=== PATIENT | female | born 1990 | race Caucasian/White ===

== ENCOUNTER 2018-06-12 04:40 | Inpatient (IN) | payer OTHER ==
[~2018-06-12] VITALS: Ht 157.5 cm; Wt 81.6 kg
[~2018-06-12 04:40] MED LIST: ACE3 PO; ASCO500C9 PO; CALC500T6 PO; ERGO400T9 PO; IBUP800T37 PO; PREN-127 PO
[2018-06-12] MEDS ORDERED: LR(*) 1000 ML BAG 1,000 ML IV SCH (04:42)
[2018-06-12] MEDS ORDERED: OXYTOCIN 30 UNIT/D5LR 500 ML 500 ML IV PRN ×2 (04:42→08:27)
[2018-06-12] MEDS ORDERED: FAMOTIDINE(*) 20MG/50ML PREMIX 50 ML IVPB PRN (04:42)
[2018-06-12] MEDS ORDERED: METOCLOPRAMIDE 10 MG/2 ML SDV IVP PRN (04:45)
[2018-06-12] MEDS ORDERED: fentaNYL CITR 100 MCG/2 ML AMP IVP PRN (04:45)
[2018-06-12] MEDS ORDERED: cefOXitin/DEX(*) 2GM/50ML PREM 50 ML IVPB PRN (04:45)
[2018-06-12] MEDS ORDERED: LIDOCAINE/SOD BICARB 8.4% SYR SC PRN (04:45)
[2018-06-12] MEDS ORDERED: LIDOCAINE 1% LOCAL 300 MG/30ML INJ PRN (04:45)
[2018-06-12] MEDS ORDERED: ACET500T68 PO (05:13)
[2018-06-12 05:25] LABS: PLATELET COUNT, AUTOMATED 214 K/uL (150-450)
--- NOTE | 2018-06-12 05:36 | History & Physical ---
History of Present Illness Estimated Gestational Age: 39.1 Chief Complaint Contractions History of Present Illness 27yo at 39w1d presents with regular uterine contractions. She denies LOF or VB. +FM. No preeclampsia symptoms. PNC by [facility]. uncomplicated. GBS negative. She does have a history of precipitous delivery with G2. History Patient's Blood Type: A Positive Rubella Status: Immune Group B Strep Screen: Negative Obstetrical History: Hx 2 FT SVDs without anesthesia Past Medical History: See PNR Allergies: Coded Allergies: No Known Drug Allergies (Unverified , 07/24/17) Social History: No T/E/D. Med Rec Home Meds Reported Medications Acetaminophen (TYLENOL EXTRA STRENGTH) 500 Mg Tablet, 500 MG PO, TAB 06/12/18 Vits W-Ca,Fe,Fa(<1MG) ( VITAMINS) 1 Each Tablet, 1 EACH PO DAILY 06/03/13 Discontinued Scripts Ibuprofen (IBUPROFEN) 800 Mg Tablet, 800 MG PO Q8H, #20 TAB 0 Refills Prov:FRANCIS ZAVALETA MD 12/24/15 Review of Systems Constitutional: No Fever Neurological: No Syncope Eyes: No Vision Change Cardiovascular: No Chest Pain Respiratory: No Shortness of Breath, No Cough Gastrointestinal: No Nausea, No Vomiting, No Diarrhea Genitourinary: No Dysuria Psychiatric: No Depression, No Anxiety Exam General Exam Vital Signs VS reviewed General Apperance: Alert/Awake/No Acute Distress Neuro: No Gross deficits Eyes: Normal Extraocular Movement & Vison Respiratory: Clear to Auscultation Abdomen: Gravid - Non-Tender : Normal Musculoskeletal: No Weakness/Pain Extremities: No Cyanosis,Clubbing or Edema Integumentary: Skin Intact without Lesions or Rash Psychological: Alert & Oriented X3, Appropriate Mood & Affect Cervical Dialation: 3 Cervical Effacement (%): 50 Cervical Consistency: Moderate Cervical Position: Mid Station: -1 Presentation: Vertex Uterine Contractions(Q min): 5 Uterine Contraction Strength: Moderate UC Resting Tone: Soft Fetus FHT Category: I Medical Decision Making Pre-Admit Course Medical Record Review: Yes VTE Prophylasis: Adult Deep Vein Thrombosis/Pulmonary: No Pharmacological Contraindicati: Pt at Low Risk for VTE Mechanical Contraindications: Pt at Low Risk for VTE Assessment and Plan Problems: (1) Spontaneous onset of labor Assessment & Plan: 27yo at 39w1d presents with regular uterine contractions. She will be admitted for labor and monitored for cervical change. She has a history of precipitous delivery, so will monitor closely. GBS negative. (2) 39 weeks gestation of UBALDO RIVER MD Jun 12, 2018 05:36
[2018-06-12 07:16] VITALS: BP 124/72; Ht 157.5 cm; Wt 81.6 kg
[2018-06-12] MEDS ORDERED: ONDANSETRON 4 MG/2 ML VIAL IVP PRN (07:35)
--- NOTE | 2018-06-12 07:45 | Labor Progress Note ---
Labor Subjective Progress Notes Subjective Pt is transitioning to active labor. Feeling more pressure. Labor Objective Vital Signs Vital Signs Date Time Temp Pulse Resp B/P (MAP) Pulse Ox O2 Delivery O2 Flow Rate FiO2 06/12/18 07:16 97.9 80 124/72 (89) 96 Room Air Cervical Dialation: 6 Cervical Effacement (%): 100 Cervical Consistency: Soft Cervical Position: Mid Station: 0 Presentation: Vertex Uterine Contractions(Q min): 4 Uterine Contraction Strength: Strong UC Resting Tone: Soft Fetus FHT Category: I General Exam General Appearance: Alert/Awake/No Acute Distress Respiratory: No Respiratory Distress Abdomen: Gravid - Non-Tender : Normal Musculoskeletal: No Weakness/Pain Extremities: No Cyanosis,Clubbing or Edema Integumentary: Skin Intact without Lesions or Rash Psychological: Alert & Oriented X3, Appropriate Mood & Affect Other Result Diagram: 06/12/18 0508 Assessment and Plan Problems: (1) Spontaneous onset of labor Assessment & Plan: Pt is now 6cm. Anticipate . (2) 39 weeks gestation of UBALDO RIVER MD Jun 12, 2018 07:45
[2018-06-12] MEDS ORDERED: LR(*) 1000 ML BAG 1,000 ML IV PRN (08:13)
[2018-06-12] MEDS ORDERED: LANOLIN OINT 7 GM TUBE TP PRN (09:00)
[2018-06-12] MEDS ORDERED: BENZOCAINE 20% 60 ML BTL TP PRN (09:00)
[2018-06-12] MEDS ORDERED: APAP/HYDROCODONE 325/5 TAB PO PRN (09:00)
[2018-06-12] MEDS ORDERED: MAGNESIUM HYDROXIDE* 30ML UDCP PO PRN (09:00)
[2018-06-12] MEDS ORDERED: GLYCERIN/WITCH HAZEL LEAF 1 PK TP PRN (09:00)
[2018-06-12] MEDS ORDERED: ACETAMINOPHEN 325 MG TAB PO PRN (09:00)
[2018-06-12] MEDS ORDERED: HYDROCORTISONE 2.5% CR 30GM TB PR PRN (09:00)
--- NOTE | 2018-06-12 09:06 | OB Delivery Note ---
Delivery Note Vaginal Delivery Type: Spont. Vaginal Delivery Delivery Date: Jun 12, 2018 Delivery Time: 08:19 Estimated Gestational Age(wks): 39.1 Length of Labor Stage I (hrs): 1 Length of Labor Stage II (hrs): 0.5 Labor Stage III (minutes): 7 Infant Sex: Female Infant Weight (gms): 3164 (6#15oz) [place] Apgars: 1 Minute (8), 5 Minute (9) Estimated Blood Loss: 400 Delivery Complications: Precipitous Nuclear Pharmacist in Attendence: HUMBERTO Carias DO Jun 12, 2018 09:06
[2018-06-12] MEDS: DOCUSATE CALCIUM 240 MG CAP PO SCH ×2 (09:13→20:27)
[2018-06-12] MEDS: IBUPROFEN 800 MG TAB PO SCH ×2 (09:13→17:27)
[2018-06-12 09:17] VITALS: BP 127/61
[2018-06-12 10:18] VITALS: BP 135/58
--- NOTE | 2018-06-12 10:42 | DELIVERY NOTE ---
DELIVERY DATE: June 12, 2018 SURGEON: Adriano Villasenor DO ANESTHESIA: None. PREOPERATIVE DIAGNOSIS 1. 27-year-old 3, para 2 at 39 and 1/7 weeks gestation. 2. Labor. POSTOPERATIVE DIAGNOSIS 1. 27-year-old 3, para 2 at 39 and 1/7 weeks gestation. 2. Labor. 3. Delivered. PROCEDURE Spontaneous vaginal delivery. FINDINGS Liveborn female infant at 0819 of June 12, 2018 with Apgars of 8 and 9, weighing 3164 grams, 6 pounds 15 ounces, three-vessel cord, intact placenta over an intact perineum. ESTIMATED BLOOD LOSS 400 mL. PATHOLOGY None. COMPLICATIONS None known. CONDITION Stable x2. Mother and infant to remain in LDRP. COUNTS Correct x2 for all needles, laps, sponges and instruments. LABOR SUMMARY Patient is a 27-year-old 3, para 2 at 39 and 1/7 weeks gestation who presents to Labor and Delivery for chief complaint of painful contractions. She was initially found to be 3 cm. She quickly changed to 6 cm. Patient desired as minimal intervention as possible and continued to labor spontaneously. Just after 8 a.m. she had spontaneous rupture of membranes with significant urge to push. She was checked and noted to be complete/complete and +3 station. With the next contraction, the patient was in the lithotomy position and was prepped for delivery. DELIVERY SUMMARY Patient was placed in the dorsal lithotomy position. The foot of the bed was lowered slightly. The infant's head was immediately noted to be in the IRINEO position. Once the chin was delivered and under control, the anterior shoulders were delivered with gentle downward motion and the posterior shoulders with gentle upward motion. The remainder of the infant's body delivered spontaneously. Mouth and nose were bulb suctioned. The infant was placed on the maternal abdomen, where it was vigorously cleaned and dried. Cord blood gases were obtained. The placenta delivered spontaneously with gentle cord traction. Oxytocin was infused to help with uterine tone. The uterus was massaged and deemed firm. Upon inspection of the perineum, vagina, cervix and labia, it was noted that there were no lacerations. At this point, the patient was cleaned. The labor bed was reassembled and the mother and were allowed to continue to hector. [facility]
[2018-06-12 13:51] VITALS: BP 108/59
[2018-06-12 18:22] VITALS: BP 121/57
[2018-06-12 20:20] VITALS: BP 128/60
[2018-06-13] VITALS: BP 117/57
[2018-06-13] MEDS: IBUPROFEN 800 MG TAB PO SCH ×2 (01:01→09:03)
[2018-06-13 04:20] VITALS: BP 97/54
[2018-06-13] MEDS ORDERED: MEASLES,MUMP,RUBELLA VAC 0.5ML SUBQ ONE (09:00)
[2018-06-13] MEDS ORDERED: DIPHTH/TETANUS/ACEL. PERTUSSIS IM ONLY ONE (09:00)
[2018-06-13] MEDS ORDERED: INFLUENZA VIRUS VAC 0.5ML SYR IM ONLY ONE (09:00)
[2018-06-13] MEDS: DOCUSATE CALCIUM 240 MG CAP PO SCH (09:03)
[2018-06-13 09:05] VITALS: BP 108/57
--- NOTE | 2018-06-13 09:25 | OB/GYN Progress Note ---
OB Subjective Progress Notes Subjective Doing great PPD #1. Reports pain controlled with Tylenol and Ibuprofen. Ambulating. . Tolerating PO intake. Lochia appropriate. GI: NEG Nausea, NEG Vomiting, NEG Flatus, NEG Bowel Movement : Voiding Well, Vaginal Bleeding, Scant Pain: Mild, Tolerating PO Pain Meds Neurological: No Headache, No Other Eyes: No Visual Disturbances OB Objective Physical Exam Vital Signs Date Time Temp Pulse Resp B/P (MAP) Pulse Ox O2 Delivery O2 Flow Rate FiO2 06/13/18 04:20 97.3 84 14 97/54 (68) Room Air 06/12/18 13:51 94 Intake and Output 06/13/18 06:59 Intake Total 1125 ml Balance 1125 ml Intake Oral 600 ml IV Total 525 ml # Voids 1 General Appearance: Alert/Awake/No Acute Distress Neurological: No Gross deficits Eyes: Normal Extraocular Movement & Vison Cardiovascular: Normal Rhythm & Peripheral Pulses Respiratory: No Respiratory Distress Abdomen: Soft, Non-Tender, Non-Distended, Fundus Firm : Normal Musculoskeletal: No Weakness/Pain Extremities: No Cyanosis,Clubbing or Edema Integumentary: Skin Intact without Lesions or Rash Psychological: Alert & Oriented X3, Appropriate Mood & Affect Result Diagram: 06/13/18 0634 Assessment and Plan 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 Follow up with Dr. Martin in 2- 6 weeks. (2) 39 weeks gestation of HUMBERTO KIDD Jun 13, 2018 09:25
[2018-06-13] MEDS ORDERED: IBUP800T37 PO (09:26)
[2018-06-13] MEDS ORDERED: ACET-2007 PO (09:26)
--- NOTE | 2018-06-13 09:29 | OB/GYN Discharge Summary ---
Discharge Summary Reason for Hosp/Final Diag: (1) Spontaneous onset of labor Status: Resolved Hospital Course & Plan: Pt presented to L&D with a chief complaint of painful contractions. Quickly progressed to complete and delivered a live born female infant. Pt remained in the hospital for 1 day post . Was meeting post goals and guidelines and desired to be discharged home. (2) 39 weeks gestation of [place] Vital Signs Vital Signs Date Time Temp Pulse Resp B/P (MAP) Pulse Ox O2 Delivery O2 Flow Rate FiO2 06/13/18 04:20 97.3 84 14 97/54 (68) Room Air 06/12/18 13:51 94 Weight (Pounds): 180 Weight (Ounces): 0.0 Result Diagram: 06/13/18 0634 Condition: Improved Discharge: Home Home Meds Reported Medications Acetaminophen (TYLENOL EXTRA STRENGTH) 500 Mg Tablet, 500 MG PO, TAB 06/12/18 Vits W-Ca,Fe,Fa(<1MG) ( VITAMINS) 1 Each Tablet, 1 EACH PO DAILY 06/03/13 Discontinued Scripts Ibuprofen (IBUPROFEN) 800 Mg Tablet, 800 MG PO Q8H, #20 TAB 0 Refills Prov:FRANCIS MARTIN MD 12/24/15 [facility] [phone], Dr. Martin [phone] Follow up in: 6 wks PP or PO Discharge Diet: As Tolerates, Increase Fluid Intake Discharge Activity: As Tolerates, Pelvic Rest HUMBERTO KIDD DO Jun 13, 2018 09:29
== END 2018-06-13 12:50 | disposition home or self-care (01) | DRG 807 ==
LOC: OB 04:40
PROVIDERS: ADMIT Obstetrics & Gynecology; ATTEND Obstetrics & Gynecology
PROC: 10E0XZZ Delivery of Products of Conception, External Approach (ICD-10-PCS; principal; 2018-06-12)
DX: O62.3 Precipitate labor (principal); Z37.0 Single live birth; Z3A.39 39 weeks gestation of pregnancy
CPT/HCPCS: 36415; 85025; 85027; 86703; 86850; 86900; 86901; J2590; J3010; J7120